=== PATIENT | female | born 1950 | race Caucasian/White ===

== ENCOUNTER → 2016-08-14 | Outpatient (CLI) | payer OTHER | LOC: BMCIMAGING 10:50 | PROVIDERS: ATTEND Internal Medicine | DX: Z12.39 Encounter for other screening for malignant neoplasm of breast (principal); N63 Unspecified lump in breast | CPT/HCPCS: 76641; G0204 ==

== ENCOUNTER → 2016-10-21 | Outpatient (CLI) | payer OTHER | LOC: BMCIMAGING 09:00 | PROVIDERS: ATTEND Physician Assistant | DX: Z09 Encounter for follow-up examination after completed treatment for conditions other than malignant neoplasm (principal); Z96.641 Presence of right artificial hip joint ==

== ENCOUNTER → 2016-12-03 | Outpatient (CLI) | payer OTHER | LOC: BMCIMAGING 09:26 | PROVIDERS: ATTEND Orthopaedic Surgery | PROC: BQ11YZZ Fluoroscopy of Left Hip using Other Contrast (ICD-10-PCS; principal; 2016-12-03) | DX: M25.552 Pain in left hip (principal) ==

== ENCOUNTER → 2017-02-20 | Outpatient (CLI) | payer OTHER | LOC: FIMAGING 08:49 | PROVIDERS: ATTEND Orthopaedic Surgery | DX: M16.12 Unilateral primary osteoarthritis, left hip (principal); Z96.641 Presence of right artificial hip joint ==

== ENCOUNTER 2017-03-09 06:01 | Inpatient (IN) | payer OTHER ==
[~2017-03-09 06:01] MED LIST: ROPIVACAINE 0.2% 80 MG, EPINEPHrine 0.2 MG, KETOROLAC TROMETHAMINE 30 MG, morphINE 10 M... IU ONE; TRANEXAMIC ACID 900 MG in NS 100 ML IV ONE
--- NOTE | 2017-03-09 06:31 | PDHPUP ---
History & Physical Update H&P update statement: This history and physical update is based on an assessment of the patient which was completed after admission or registration (within 24 hours), but prior to the surgery/procedure.
--- NOTE | 2017-03-09 06:32 | PDIAF ---
- Diagnosis Diagnosis: left hip djd Code Status: Full Code - Medication Management Discharge Medications: Medications to Continue on Transfer Fingolimod HCl [Gilenya] 0.5 mg PO HS 06/08/15 [Last Taken 07/01/15] Simvastatin 10 mg PO HS 06/08/15 [Last Taken 07/01/15] traZODone [traZODONE 50MG (*)] 50 mg PO HS 06/08/15 [Last Taken 07/01/15] Carboxymethylcellulose 1% [Refresh Celluvisc (*)] 1 drop EACHEYE DAILY PRN 02/17 [Last Taken Unknown] Ibuprofen [Motrin (*)] 200 mg PO DAILY PRN 02/17/17 [Last Taken Unknown] Discharge Medications: Refer to the Discharge Home Medication list for PRN reason. - Orders Services needed: Home Care, Physical Therapy Home Care Face to Face: I certify that this patient was under my care and that I had the required [id number] encounter meeting the encounter requirements on the discharge day. My findings support the fact that the patient is homebound as defined in Home Care Face to Face Continued: CMS Chapter 7 Medicare Benefits Manual 30.1.1 , The condition of the patient is such that there exists a normal inability to leave home and consequently, leaving home would require a considerable and taxing effort. Activity/Weight Bearing Restrictions: wbat. anterior hip precautions. daily dressing changes. no soaking or immersion. f/u at two weeks. seek attn for increasing redness, swelling, drainage, discharge - Follow Up Care Current Providers and Referrals: Ayaka Bass MD [Primary Care Provider] -
[2017-03-09] MEDS ORDERED: FAMOTIDINE 20 MG TAB PO ONE (07:11)
[2017-03-09] MEDS ORDERED: ceFAZolin 2 GM/SWFI 2 GM/20 ML SYR IVP ONE (07:11)
[2017-03-09] MEDS ORDERED: ACETAMINOPHEN 325 MG TAB PO ONE (07:11)
[2017-03-09] MEDS ORDERED: PROPOFOL/EMULSION 500 MG/50 ML BOTTLE IV ONE (07:26)
[2017-03-09] MEDS ORDERED: MIDAZOLAM 2 MG/2 ML VIAL ONE (07:26)
[2017-03-09] MEDS ORDERED: LR 1,000 ML IV ONE (07:35)
[2017-03-09] MEDS ORDERED: LIDOCAINE 1% 2 ML INJ ID PRN (07:35)
[2017-03-09] MEDS ORDERED: THROMBIN (BOVINE) 5,000 UNIT VIAL TP ONE (07:45)
[2017-03-09] MEDS ORDERED: CALCIUM CHLORIDE 1 GM/10 ML INJ ONE (07:45)
[2017-03-09] MEDS ORDERED: ALBUTEROL 3 ML DEYVIAL IH PRN (08:56)
[2017-03-09] MEDS ORDERED: ONDANSETRON 4 MG/2 ML VIAL IVP PRN ×2 (08:56→09:31)
[2017-03-09] MEDS ORDERED: NALOXONE HCL 0.4 MG/ML INJ IVP PRN (08:56)
[2017-03-09] MEDS ORDERED: MEPERIDINE 25 MG/ML SYR IVP PRN (08:56)
[2017-03-09] MEDS ORDERED: PROMETHAZINE HCL 25 MG/ML INJ IVP PRN ×2 (08:56→09:31)
[2017-03-09] MEDS ORDERED: LR 500 ML IV PRN (08:56)
[2017-03-09] MEDS ORDERED: METOCLOPRAMIDE 10 MG/2 ML VIAL IVP PRN ×2 (08:56→09:31)
--- NOTE | 2017-03-09 08:56 | PDANEPAE ---
ANE Past Medical History - Cardiovascular History Hx Hypertension: No Hx Arrhythmias: No Hx Chest Pain: No Hx Coronary Artery / Peripheral Vascular Disease: No Hx CHF / Valvular Disease: No Hx Palpitations: No Cardiovascular History Comment: HEART MURMUR - Pulmonary History Hx COPD: No Hx Asthma/Reactive Airway Disease: No Hx Recent Upper Respiratory Infection: No Hx Oxygen in Use at Home: No Hx Sleep Apnea: No Sleep Apnea Screening Result - Last Documented: Negative Pulmonary History Comment: PE - Neurologic History Hx Cerebrovascular Accident: No Hx Seizures: No Hx Dementia: No - Endocrine History Hx Diabetes: No Endocrine History Comment: HYPOTHYROID - Renal History Hx Renal Disorders: No - Liver History Hx Hepatic Disorders: No - Neurological & Psychiatric Hx Hx Neurological and Psychiatric Disorders: Yes Neurological / Psychiatric History Comment: DEPRESSION - Cancer History Hx Cancer: No - Congenital Disorder History Hx Congenital Disorders: No - GI History Hx Gastrointestinal Disorders: No - Other Health History Other Health History: MS DX 2009. INTERMITTENT VERTIGO. OSTEOARTHRITIS - Chronic Pain History Chronic Pain: Yes (RT HIP) - Surgical History Prior Surgeries: COLONOSCOPY ANE Review of Systems Review of Systems: - Exercise capacity METS (RN): 6 METS ANE Patient History - Allergies Allergies/Adverse Reactions: No Known Allergies Allergy (Unverified 06/08/15 13:59) - Home Medications Home Medications: Fingolimod HCl [Gilenya] 0.5 mg PO HS 06/08/15 [Last Taken 07/01/15] Simvastatin 10 mg PO HS 06/08/15 [Last Taken 07/01/15] traZODone [traZODONE 50MG (*)] 50 mg PO HS 06/08/15 [Last Taken 07/01/15] Carboxymethylcellulose 1% [Refresh Celluvisc (*)] 1 drop EACHEYE DAILY PRN 02/17 [Last Taken Unknown] Ibuprofen [Motrin (*)] 200 mg PO DAILY PRN 02/17/17 [Last Taken Unknown] - NPO status NPO Since - Liquids (Date): 03/09/17 NPO Since - Liquids (Time): 04:45 NPO Since - Solids (Date): 03/08/17 NPO Since - Solids (Time): 21:00 - Smoking Hx Smoking Status: Never smoked - Family Anes Hx Family Hx Anesthesia Complications: NEG ANE Labs/Vital Signs - Vital Signs Blood Pressure: 132/68 Heart Rate: 59 Respiratory Rate: 16 O2 Sat (%): 96 Height: 158.75 cm Weight: 45.359 kg ANE Physical Exam - Airway Neck exam: FROM Mallampati Score: Class 2 Mouth exam: normal dental/mouth exam - Pulmonary Pulmonary: no respiratory distress, no rales or rhonchi, clear to auscultation - Cardiovascular Cardiovascular: regular rate and rhythym, no murmur, rub, or gallop - ASA Status ASA Status: II ANE Anesthesia Plan Anesthesia Plan: spinal
[2017-03-09] MEDS ORDERED: LIDOCAINE 2% 5 ML SDV ONE (09:08)
[2017-03-09] MEDS ORDERED: MAGNESIUM HYDROXIDE 30 ML UDCUP PO PRN (09:31)
[2017-03-09] MEDS ORDERED: DIPHENOXYLATE/ATROPINE LOMOTIL 1 TAB PO PRN (09:31)
[2017-03-09] MEDS ORDERED: DIAZEPAM 5 MG TAB PO PRN (09:31)
[2017-03-09] MEDS ORDERED: ONDANSETRON DISINTEGRATING 4 MG TAB PO PRN (09:31)
[2017-03-09] MEDS ORDERED: diphenhydrAMINE 25 MG CAP PO PRN (09:31)
[2017-03-09] MEDS ORDERED: PROMETHAZINE HCL 25 MG SUPPR PR PRN (09:31)
[2017-03-09] MEDS ORDERED: oxyCODONE IR 5 MG TAB PO PRN (09:31)
[2017-03-09] MEDS ORDERED: BISACODYL 10 MG SUPP PR PRN (09:31)
[2017-03-09] MEDS ORDERED: LACTULOSE 20 GM/30 ML UDCUP PO PRN (09:31)
[2017-03-09] MEDS ORDERED: TEMAZEPAM 15 MG CAP PO PRN (09:31)
[2017-03-09] MEDS ORDERED: POLYETHYLENE GLYCOL 3350 17 GM PKT PO PRN (09:31)
[2017-03-09] MEDS ORDERED: LR 1,000 ML IV SCH (10:00)
[2017-03-09] MEDS ORDERED: fentaNYL 100 MCG/2 ML INJ ONE ×2 (10:02→10:26)
[2017-03-09] MEDS: fentaNYL 100 MCG/2 ML INJ IVP PRN ×3 (10:08→11:07)
--- NOTE | 2017-03-09 10:24 | POSTANESTH ---
Post Anesthetic Evaluation Cardiovascular Status: Normal, Stable Respiratory Status: Normal, Stable Level of Consciousness/Mental Status: Can Participate in Eval Pain Control: Adequate, Prn Tx Ordered Nausea/Vomiting Control: Adequate, Prn Tx Ordered Complications Possibly Related to Anesthesia: None Noted
[2017-03-09] MEDS: ACETAMINOPHEN 325 MG TAB PO SCH ×2 (12:44→18:36)
[2017-03-09] MEDS: ceFAZolin 2 GM/DEXTROSE 100 ML IV SCH ×2 (16:46→21:56)
[2017-03-09] MEDS: TRANEXAMIC ACID 650 MG TAB PO SCH (18:54)
[2017-03-09] MEDS: FAMOTIDINE 20 MG TAB PO SCH (21:57)
[2017-03-09] MEDS: SENNOSIDES/DOCUSATE SODIUM TAB PO SCH (21:57)
[2017-03-10] MEDS: TRANEXAMIC ACID 650 MG TAB PO SCH (00:04)
[2017-03-10 05:06] LABS: HEMATOCRIT 30.8 % (38.0-47.0); HEMOGLOBIN 10.4 g/dL (12.6-16.3)
[2017-03-10] MEDS: ACETAMINOPHEN 325 MG TAB PO SCH ×3 (05:40→13:50)
--- NOTE | 2017-03-10 07:04 | PDIAF ---
- Diagnosis Diagnosis: left hip djd Code Status: Full Code - Medication Management Discharge Medications: Medications to Continue on Transfer Fingolimod HCl [Gilenya] 0.5 mg PO HS 06/08/15 [Last Taken 07/01/15] Simvastatin 10 mg PO HS 06/08/15 [Last Taken 07/01/15] traZODone [traZODONE 50MG (*)] 50 mg PO HS 06/08/15 [Last Taken 07/01/15] Carboxymethylcellulose 1% [Refresh Celluvisc (*)] 1 drop EACHEYE DAILY PRN 02/17 [Last Taken Unknown] Ibuprofen [Motrin (*)] 200 mg PO DAILY PRN 02/17/17 [Last Taken Unknown] Ondansetron Odt [Zofran Odt 4 mg (*)] 4 mg PO Q4HRS PRN #15 tab 03/10/17 [Last Taken Unknown] oxyCODONE IR [Oxycodone Ir (*)] 5 - 10 mg PO Q3HRS PRN #70 tab 03/10/17 [Last Taken Unknown] Discharge Medications: Refer to the Discharge Home Medication list for PRN reason. - Orders Services needed: Home Care, Physical Therapy Home Care Face to Face: I certify that this patient was under my care and that I had the required [id number] encounter meeting the encounter requirements on the discharge day. My findings support the fact that the patient is homebound as defined in Home Care Face to Face Continued: CMS Chapter 7 Medicare Benefits Manual 30.1.1 , The condition of the patient is such that there exists a normal inability to leave home and consequently, leaving home would require a considerable and taxing effort. Diet Recommendation: no restrictions on diet Diet Texture: Regular Texture Diet Activity/Weight Bearing Restrictions: wbat. anterior hip precautions. daily dressing changes. no soaking or immersion. f/u at two weeks. aspirin 325 mg po daily for six weeks. seek attn for increasing redness, swelling, drainage , discharge - Follow Up Care Current Providers and Referrals: Ayaka Bass MD [Primary Care Provider] -
[2017-03-10] MEDS ORDERED: CARBOXYMETHYLCELLULOSE 1% 0.4 ML DROPERETTE EACHEYE PRN (07:19)
[2017-03-10 07:39] VITALS: RESP 16
[2017-03-10] MEDS: SENNOSIDES/DOCUSATE SODIUM TAB PO SCH (07:45)
[2017-03-10] MEDS: FAMOTIDINE 20 MG TAB PO SCH (07:47)
[2017-03-10] MEDS ORDERED: TRANEXAMIC ACID 650 MG TAB PO SCH (08:00)
[2017-03-10] MEDS ORDERED: ASPIRIN EC 325 MG TAB PO SCH (09:00)
--- NOTE | 2017-03-10 10:32 | ASMTCMCOM ---
CM Note CM Note Notes: Chart reviewed. patient s/p hip repair. She has been medically cleared for discharge, disposition per patient. She may go home with [facility] or to rehab if she feels that might be better. Referrals placed. awaiting responses. Plan to be determined. CM to follow. Date Signed: 03/10/2017 10:32 AM Electronically Signed By:Yuki Hsu RN
[2017-03-10 11:37] VITALS: BP 97/56; PULSE 64; TEMP 97.8; O2SAT 96
--- NOTE | 2017-03-10 12:42 | GDS ---
[f rep st] DISCHARGE SUMMARY ADMITTING DIAGNOSIS: Left hip degenerative joint disease. DISCHARGE DIAGNOSIS: Left hip degenerative joint disease. PROCEDURE: Left total hip arthroplasty, MAKOplasty. OPERATIVE INDICATIONS: The patient is a 66-year-old woman who is known to me from previous right tot al hip replacement. She has end-stage arthritis to her left hip. Clinical and radiographic features are consistent with this. I have, therefore, recommended total hip replacement. She understood the risks, benefits, alternatives, and wished to proceed. Written consent was signed and placed in julian ent's chart. HOSPITAL COURSE: The patient was admitted to the hospital floor after uncomplicated total hip arthro plasty. She tolerated the procedure well. Postoperatively, her course was marked with issues of phong sea and weakness to her left leg. At the time of discharge, she is tolerating an oral diet. Her trini n is well controlled on oral medicines. She is voiding without difficulty. Her dressing is clean, d ry, and intact. She has negative Gregorio's bilaterally. X-rays are stable with anatomic alignment. T here is no fracture or lucency. DISCHARGE ACTIVITY: She is weightbearing as tolerated. Anterior hip precautions. Daily dressing ch anges. No soaking or immersion. May shower without the bandage and/or dressing. FOLLOWUP: In 2 weeks. Seek attention for increasing redness, swelling, drainage, discharge, or othe r focal complaints. DISCHARGE MEDICATIONS: Oxycodone 5 mg 1-2 every 4 hours p.r.n. pain. Aspirin 325 mg p.o. daily for 6 weeks. /[id number]/MODL
[2017-03-10] MEDS ORDERED: Fingolimod Hcl [Gilenya] 0.5 MG PO SCH (21:00)
[2017-03-10] MEDS ORDERED: traZODone 50 MG TAB PO SCH (21:00)
[2017-03-10] MEDS ORDERED: NON-FORMULARY NEW DRUG (Simvastatin [Simvastatin] 10 MG) PO SCH (21:00)
[2017-03-10] MEDS ORDERED: PRAVASTATIN SODIUM 20 MG TAB PO SCH (21:00)
--- NOTE | 2017-03-11 08:02 | GOP ---
[f rep st] OPERATIVE REPORT DATE OF OPERATION: 03/09/2017 SURGEON: Marcell Wright MD THEATRE INSTRUCTOR: Cy Shi, DYNAMICIST, [facility], who was a medical necessity for the entirety of the case. Magdalena Cantu, TAYLOR. PREOPERATIVE DIAGNOSIS: Left hip degenerative joint disease. POSTOPERATIVE DIAGNOSIS: Left hip degenerative joint disease. PROCEDURE PERFORMED: Left total hip [id number]-[id number] approach. FINDINGS: SPECIMENS: To Pathology, the femoral head. ESTIMATED BLOOD LOSS: 300 cc. DESCRIPTION OF PROCEDURE: The patient was identified in the preanesthesia area. The left hip clearl y demarcated as the operative site with indelible marker. She was given 2 g of Ancef intravenously e n route to the operative suite. In the OR, general endotracheal anesthesia was administered and she was positioned in the supine position. Appropriate time-out procedure was carried out. The pelvis a nd lower extremities were both sterilely prepped and draped in usual fashion. Attention was first tu rned to the right hemipelvis, 2 cm incision was made over the ASIS. Three pins were placed into the pelvic ilium, and the pelvic reference array affixed. Attention was then turned to the left hip. An anterior approach was made. This was carried sharply through the skin and subcutaneous tissue, dire ctly to the fascia overlying the tensor fascia dianelys. The tensor was retracted in a lateral direction . The underlying vascular structures were identified, ligated, cauterized and transected. The rectu s elevated off the anterior capsule. Retractors were placed in an extracapsular position. A T was m megan in the capsule and the retractors were placed in an intracapsular position. An acetabular checkp oint was placed. A bony wedge was removed from the femoral neck followed by removal of the femoral h ead. The acetabular labrum was sharply excised. The bony landmarks were entered into the computer a nd using the MAKOplasty robot, a 50 mm reamer was placed in an opening angle of 40 degrees and 20 deg michelle of anteversion and reamed to the appropriate depth. A 50 mm titanium acetabular shell was then impacted, confirmed to be fully seated. A 0 degree X3 polyethylene insert was then placed and confir med to be fully seated. Attention was turned to the femur which was delivered through the use of sof t tissue releases and extension of the table. The proximal canal was opened and serial broaching car ried out to a size 6 stem. Intraoperative fluoroscopy confirmed appropriate positioning and alignmen t. Trial reduction with a -4 mm neck length head was then placed. This was felt to be appropriate. The final size 6 stem was then impacted, confirmed to be fully seated. A 32 mm -4 mm neck length Bi olox head was then placed and the hip was copiously irrigated and reduced. Appropriate leg lengths w ere restored. Stability profile revealed full stability with no subluxation in 90 degrees external r otation and full extension. The wound was irrigated with pulsatile lavage solution. The soft tissue instilled with a joint cocktail of ropivacaine, morphine, Toradol, and epinephrine. The fascia of t he tensor was closed using 0 Vicryl. Subcutaneous tissue closed using 0 Quill and the skin stapled. The margins were instilled with a joint cocktail as above. Sterile dressings were applied. The pat ient was awakened, extubated, taken recovery in good stable condition. OPERATIVE INDICATIONS: The patient is a 66-year-old woman is known to sc for previous right total hi p replacement. She returns for planned left total hip replacement. She understood the risks, benefi ts, alternatives, and wished to proceed. Written consent was signed and placed in patient's chart. She has failed all attempts at conservative management. TOTAL TOURNIQUET TIME: None. COMPLICATIONS: None. IMPLANTS: The [place] Tritanium acetabular shell, size 50, trident X3, 0 degree polyethylene insert, size 32 mm inner diameter, Accolate 227 degree neck angle hip stem, size 6. Biologics Delta ceramic head, 32 mm -4 mm neck length. DISPOSITION: To the recovery room, then the floor. She will be weightbearing as tolerated. Follow standard recovery. /[id number]/MODL
== END 2017-03-10 16:38 | disposition home or self-care (01) | DRG 470 ==
LOC: F3N 06:01
PROVIDERS: ADMIT Orthopaedic Surgery; ATTEND Orthopaedic Surgery
PROC: 0SRB04Z Replacement of Left Hip Joint with Ceramic on Polyethylene Synthetic Substitute, Open Approach (ICD-10-PCS; principal; 2017-03-09 08:15)
DX: M16.12 Unilateral primary osteoarthritis, left hip (principal); E03.9 Hypothyroidism, unspecified
CPT/HCPCS: 97116-GP; 97161-GP; 97166-GO; C1713; G8978-GP-CJ; G8979-GP-CI; G8980-GP-CI; G8987-GO-CJ; G8988-GO-CI; J0171; J0690; J1885; J2250; J2405; J2550; J2704; J2795; J3010

== ENCOUNTER → 2017-04-22 | Outpatient (CLI) | payer OTHER | LOC: BMCIMAGING 10:00 | PROVIDERS: ATTEND Physician Assistant | DX: Z47.1 Aftercare following joint replacement surgery (principal); Z96.642 Presence of left artificial hip joint ==

== ENCOUNTER → 2017-06-02 | Outpatient (CLI) | payer OTHER | LOC: BMCIMAGING 09:47 | PROVIDERS: ATTEND Physician Assistant | DX: Z47.1 Aftercare following joint replacement surgery (principal); Z96.642 Presence of left artificial hip joint ==

== ENCOUNTER → 2017-06-18 | Outpatient (CLI) | payer OTHER | LOC: FIMAGING 09:32 → EDSTATUS 09:33 | PROVIDERS: ATTEND Physician Assistant | DX: M21.70 Unequal limb length (acquired), unspecified site (principal) ==

== ENCOUNTER → 2017-07-06 | Outpatient (CLI) | payer OTHER | LOC: BMCIMAGING 09:00 | PROVIDERS: ATTEND Orthopaedic Surgery | DX: M17.12 Unilateral primary osteoarthritis, left knee (principal); M21.962 Unspecified acquired deformity of left lower leg ==

== ENCOUNTER → 2017-09-01 | Outpatient (CLI) | payer OTHER | LOC: BMCIMAGING 13:48 | PROVIDERS: ATTEND Orthopaedic Surgery | DX: Z47.1 Aftercare following joint replacement surgery (principal); Z96.612 Presence of left artificial shoulder joint ==

== ENCOUNTER → 2017-09-04 | Outpatient (CLI) | payer OTHER | LOC: BMCIMAGING 10:20 | PROVIDERS: ATTEND Internal Medicine | DX: Z13.820 Encounter for screening for osteoporosis (principal); M85.89 Other specified disorders of bone density and structure, multiple sites; Z82.62 Family history of osteoporosis; Z96.643 Presence of artificial hip joint, bilateral ==

== ENCOUNTER → 2018-03-10 | Outpatient (CLI) | payer OTHER | LOC: BMCIMAGING 09:59 | PROVIDERS: ATTEND Orthopaedic Surgery | DX: Z47.1 Aftercare following joint replacement surgery (principal); Z96.642 Presence of left artificial hip joint ==

== ENCOUNTER → 2018-07-11 | Outpatient (CLI) | payer OTHER | LOC: FIMAGING 10:37 | PROVIDERS: ATTEND Psychiatry & Neurology Neurology | DX: G35 Multiple sclerosis (principal) | CPT/HCPCS: 70551-PN ==